=== PATIENT | male | born 1990 ===

== ENCOUNTER → 2019-05-05 06:00 | Outpatient (CLI) | payer OTHER | END | disposition home or self-care (01) | LOC: EKG 06:00 → ADM 11:45 → EDSTATUS 05-10 11:45 → CIR.AMB 05-10 11:45 | DX: M25.832 Other specified joint disorders, left wrist (principal); I10 Essential (primary) hypertension ==

== ENCOUNTER 2020-02-14 06:15 | Day surgery (SDC) | payer OTHER | END 2020-02-14 11:35 | disposition home or self-care (01) | LOC: CIR.AMB 06:15 | PROVIDERS: ATTEND Orthopaedic Surgery Hand Surgery | DX: M67.432 Ganglion, left wrist (principal); Z20.828 Contact with and (suspected) exposure to other viral communicable diseases ==